=== PATIENT | male | born 1990 | race Caucasian/White ===

== ENCOUNTER → 2021-12-15 | Outpatient (CLI) | payer OTHER ==
[~2021-12-15] MED LIST: PROHANCE 279.3MG/ML 15ML VIAL ONE
== END ==
LOC: M PLAIMG 09:18
PROVIDERS: ATTEND Surgery Vascular Surgery
DX: Q27.32 Arteriovenous malformation of vessel of lower limb (principal)
CPT/HCPCS: 73720; A9576

== ENCOUNTER → 2022-01-02 | Outpatient (CLI) | payer OTHER ==
[~2022-01-02] MED LIST changes: +PROHANCE 279.3MG/ML 15ML VIAL As Ordered ONE; -PROHANCE 279.3MG/ML 15ML VIAL ONE; +PROHANCE 279.3MG/ML 5ML VIAL As Ordered ONE
== END ==
LOC: M RAD 12:24
PROVIDERS: ATTEND Surgery Vascular Surgery
DX: Q27.32 Arteriovenous malformation of vessel of lower limb (principal)
CPT/HCPCS: A9576; C8914